=== PATIENT | male | born 1970 | race Caucasian/White ===

== ENCOUNTER 2019-01-27 11:38 | Day surgery (SDC) | payer BC ==
[2019-01-24 11:56] VITALS: BMI 31.3
[~2019-01-27 11:38] MED LIST: LACTATED RINGERS 1,000 ML IV SCH
[2019-01-27] MEDS ORDERED: LIDOCAINE 1% 20 ML VIAL (10MG/ML) FOR IV START INTRADERMA ONE (13:00)
[2019-01-27 13:19] VITALS: TEMP 98.4
[2019-01-27] MEDS ORDERED: PROPOFOL 10 MG/ML 20 ML VIAL IV ONE (13:28)
[2019-01-27 13:57] VITALS: RESP 14
[2019-01-27 14:12] VITALS: BP 126/78; PULSE 75
--- NOTE | 2019-01-27 16:14 | P.PCN ---
Date of Procedure: 01/27/19 Procedure(s) Performed: BRIEF HISTORY: Patient is a 48-year-old pleasant white male, scheduled for an elective colonoscopy as a part of evaluation of intermittent blood in the stools for the last 3 years duration PROCEDURE PERFORMED: Colonoscopy with snare polypectomy. PREOPERATIVE DIAGNOSIS: intermittent rectal bleeding. IV sedation per Anesthesia. PROCEDURE: After informed consent was obtained, the patient, was brought into the endoscopy unit. IV sedation was administered by Anesthesia under continuous monitoring. Digital rectal examination was normal. Initially the Olympus CF-160 flexible video colonoscope was then inserted in the rectum, gradually advanced into the cecum without any difficulty. Careful examination was performed as the scope was gradually being withdrawn. Ileocecal valve and the appendiceal orifice were visualized and appeared normal. Prep was excellent. Mucosa of the cecum, ascending colon, transverse colon, descending colon, sigmoid colon, and rectum appeared normal. In the sigmoid colon at 30 cm from the anal verge there was a 2.5 cm pedunculated polyp that was removed by snare polypectomy. Retroflexion was performed in the rectum and no lesions were seen. The patient tolerated the procedure well. IMPRESSION: 2.5 cm pedunculated sigmoid colon polyp status post polypectomy RECOMMENDATIONS: Findings of this examination were discussed with the patient as well as a family. He was advised to follow with the biopsy doesn't have a repeat colonoscopy in 3 years.
== END 2019-01-27 14:33 | disposition home or self-care (01) ==
LOC: ORWHC2ENDO 11:38
PROVIDERS: ATTEND Internal Medicine Gastroenterology
DX: D12.5 Benign neoplasm of sigmoid colon (principal); I10 Essential (primary) hypertension; E78.5 Hyperlipidemia, unspecified; K21.9 Gastro-esophageal reflux disease without esophagitis; Z79.899 Other long term (current) drug therapy; Z98.890 Other specified postprocedural states
CPT/HCPCS: 88305; 45385; J2704

== ENCOUNTER → 2020-03-12 | Outpatient (CLI) | payer BC ==
--- NOTE | 2020-03-13 21:10 | MR ---
EXAMINATION TYPE: MR cspine/tspine wo con DATE OF EXAM: 03/12/2020 COMPARISON: Cervical spine x-ray 4 days ago. MRI cervical spine December 01, 2013 HISTORY: Cervicalgia, pain in T-sp TECHNIQUE: Multiplanar, multisequence imaging of cervical and thoracic spine are performed without co ntrast FINDINGS: MRI CERVICAL SPINE: FINDINGS: There is levoconvex scoliotic curvature centered in the upper thoracic spine redemonstrated . Sagittal images of the cervical spine show the craniocervical junction to remain within normal limi ts. The cervical and upper thoracic spinal cord remains normal in caliber and signal. Stable mild di sc space narrowing C6-C7 level otherwise. Vertebral body and intravertebral disk heights are normal. The bone marrow signal intensity remains within normal limits. Axial images show the C2-C3 and C3-C4 levels to remain within normal limits. Axial images at C4-C5 levels with tiny central disc protrusion on current study mildly effacing anter ior thecal sac axial image 30. Axial images at C5-C6 level show focal central disc protrusion mildly facing anterior thecal sac, the re is mild left-sided neural foraminal narrowing noted. Axial images at C6-C7 level show largest left paracentral broad-based disc protrusion effacing gracie lateral thecal sac and causing slight flattening of the left aspect of the ventral surface spinal cor d on image 15, this is more prominent from prior study causing increasing now moderate to severe left -sided neural foraminal narrowing. Right-sided neural foramina is patent. Axial images at C7-T1 level remain within normal limits. IMPRESSION: Some new mild degenerative changes in the mid cervical spine. Worsening degenerative simms ges at the most severe disc herniation C6-C7 level as detailed above. T-SPINE: Coronal images show prominent levoconvex scoliosis centered at T3-T4 disc space level. Spinal cord s hows normal caliber and signal as it courses the thoracic spine. Vertebral body heights and disc spa ce height are satisfactory. Tiny posterior disc herniation minimally effaces the anterior thecal sac T11-T12 level sagittal image 10. Bone marrow signal intensity is preserved. Review of the axial images shows additional left paracentral disc protrusions minimally efface the a nterior thecal sac at T3-T4 level axial image 14. No additional significant disc herniation seen. Visualized thorax and upper abdomen are grossly unremarkable. IMPRESSION: No significant abnormality is seen to account for patient's symptoms.
== END | disposition home or self-care (01) ==
LOC: RADMRIMAIN 13:19
PROVIDERS: ATTEND Orthopaedic Surgery
DX: M50.223 Other cervical disc displacement at C6-C7 level (principal); M47.812 Spondylosis without myelopathy or radiculopathy, cervical region; M54.6 Pain in thoracic spine
CPT/HCPCS: 72141; 72146

== ENCOUNTER 2020-04-11 08:57 | Day surgery (SDC) | payer BC ==
[2020-04-09 12:14] VITALS: BMI 31.3
[2020-04-11] MEDS ORDERED: LACTATED RINGERS 1,000 ML IV SCH (09:05)
[2020-04-11 09:13] VITALS: RESP 16; TEMP 97.9
[2020-04-11] MEDS ORDERED: DEXAMETHASONE SOD PHOSPHATE 10 MG/ML 1 ML VIAL ONE (09:25)
[2020-04-11] MEDS ORDERED: methylPREDNISolone ACETATE 40 MG/ML 1 ML VIAL ONE (09:25)
[2020-04-11] MEDS ORDERED: IOPAMIDOL M200 10 ML VIAL ONE (09:25)
--- NOTE | 2020-04-11 09:26 | P.PCN ---
Date of Procedure: 04/11/20 Description of Procedure: PROCEDURE 1. Cervical epidural steroid injection under fluoroscopic guidance, C6-C7 2. Cervical epidurogram. PREOPERATIVE DIAGNOSIS: Cervical radiculopathy POSTOPERATIVE DIAGNOSIS: Cervical radiculopathy Imaging: Fluoroscopy was used, images where saved to the medical record ANESTHESIA: Local anesthesia with 1% lidocaine PROCEDURE DESCRIPTION / TECHNIQUE: The patient was seen and identified in the preoperative area. Risks, benefits, and alternatives were discused with the patient and the patient has consented to the procedure. Risks of the procedure include potential for bleeding, infection, nerve damage, and incomplete pain relief were discussed with the patient. All questions were answered for the patient Patient was taken to the OR and time out was completed. The patient was placed in the prone position on the procedure table. A pillow was placed under the patients chest to increase the cervical interlaminar space. The cervical area was prepped and draped in the usual sterile fashion. Vital signs were closely monitored during the procedure. Using anterior-posterior fluoroscopy, the C6-C7 interlaminar space was identified and the skin over this site was marked and then infiltrated with 1% lidocaine subcutaneously. Subsequently, a 20-gauge 3-1/2-inch Tuohy epidural needle was inserted and advanced toward the epidural space by means of the hfgs-[id number] technique and guided by AP and lateral fluoroscopy. The correct needle position in the epidural space was verified with the injection of 1 mL of the water soluble contrast dye Isovue-180 and observing an excellent epidurogram with the epidural spread of the dye, after negative aspiration for blood and CSF and in the absence of paresthesias. Again after negative asp iration, a mixture containing 10 mg Dexamethasone and 2 ml of preservative-free normal saline injected and a washout of epidurogram was seen. Needle was withdrawn intact, skin was cleansed, and bandages were applied. Complications: none. Disposition: patient was placed in supine position and transferred to the recovery room area in stable condition and there was no evidence of upper or lower extremity motor or sensory deficit after the procedure patient was discharged from recovery room after discharge criteria met and home discharge instructions was given by the staff and patient will follow with the pain as directed.
[2020-04-11 09:41] VITALS: BP 137/77; PULSE 67
--- NOTE | 2020-04-11 10:56 | FL ---
Fluoroscopy HISTORY: Pain 5 seconds fluoroscopy time supplied to the referring clinician. 1 intraoperative C-arm images docume nt the procedure. See dictated report from anesthesia.
== END 2020-04-11 09:53 | disposition home or self-care (01) ==
LOC: ORPAIN 08:57
PROVIDERS: ATTEND Hospitalist
DX: M54.12 Radiculopathy, cervical region (principal); M48.02 Spinal stenosis, cervical region
CPT/HCPCS: 62321; J1100; Q9966; 64483

== ENCOUNTER → 2020-06-06 | Outpatient (CLI) | payer BC | END | disposition home or self-care (01) | LOC: LABPAT 08:19 | PROVIDERS: ATTEND Orthopaedic Surgery | DX: Z01.812 Encounter for preprocedural laboratory examination (principal); M43.12 Spondylolisthesis, cervical region | CPT/HCPCS: 87070 ==

== ENCOUNTER → 2020-06-10 | Outpatient (CLI) | payer BC ==
[~2020-06-10] MED LIST changes: +ACETAMINOPHEN TAB 500 MG TAB PO PRN; +GABAPENTIN 300 MG CAP PO PRN; -LACTATED RINGERS 1,000 ML IV SCH; +ONDANSETRON 4 MG/2 ML VIAL IVP PRN; +TRANEXAMIC ACID 1,000 MG in SODIUM CHLORIDE 0.9% 100 ML IVPB PRN
[2020-06-10 14:36] LABS: African American GFR (CKD) 122.4 (60.0-200.0); Albumin 4.7 g/dL (3.80-4.90); Albumin/Globulin Ratio 2.35 (1.60-3.17); Anion Gap 3.3 mmol/L (4.00-12.00); BUN/Creat Ratio 13.75 Ratio (12.00-20.00); Calcium 9.2 mg/dL (8.7-10.3); Carbon Dioxide 32.7 mmol/L (21.6-31.8); Non-African American GFR(CKD) 105.6 (60.0-200.0); Potassium 3.5 mmol/L (3.5-5.5); Total Bilirubin 0.7 mg/dL (0.3-1.2); Total Protein 6.7 g/dL (6.2-8.2)
== END | disposition home or self-care (01) ==
LOC: LABWHC1 08:30
PROVIDERS: ATTEND Orthopaedic Surgery
DX: E87.6 Hypokalemia (principal)
CPT/HCPCS: 36415; 80053

== ENCOUNTER 2020-06-11 10:17 | Day surgery (SDC) | payer BC ==
[2020-06-05 10:38] VITALS: BMI 31.3
[2020-06-11] MEDS ORDERED: ONDANSETRON 4 MG/2 ML VIAL IVP ONE (10:27)
[2020-06-11] MEDS ORDERED: MIDAZOLAM 2 MG/2 ML VIAL IV PRN (10:27)
[2020-06-11] MEDS ORDERED: HYDROmorphone 0.5 MG/0.5 ML SYRINGE IVP PRN (10:27)
[2020-06-11] MEDS ORDERED: LACTATED RINGERS 1,000 ML IV SCH (10:27)
[2020-06-11] MEDS ORDERED: DEXAMETHASONE SOD PHOSPHATE 4 MG/ML 1 ML VIAL IV ONE (10:27)
[2020-06-11] MEDS ORDERED: LIDOCAINE 1% (10MG/ML) FOR IV START INTRADERMA PRN (10:27)
[2020-06-11] MEDS ORDERED: PROPOFOL 10 MG/ML 20 ML VIAL IV ONE (12:45)
[2020-06-11] MEDS ORDERED: PHENYLEPHRINE 10 MG/ML VIAL ONE (12:45)
[2020-06-11] MEDS ORDERED: KETAMINE 10 MG/ML 20 ML VIAL ONE (12:45)
[2020-06-11] MEDS ORDERED: LIDOCAINE 1% INJ 10MG/ML (20 ML MDV) ONE (12:45)
[2020-06-11] MEDS ORDERED: fentaNYL (PF) 50 MCG/ML 2 ML AMP ONE (12:45)
[2020-06-11] MEDS ORDERED: MIDAZOLAM 2 MG/2 ML VIAL ONE (12:45)
[2020-06-11] MEDS ORDERED: SUCCINYLCHOLINE CHLORIDE 100 MG/5 ML SYR IV ONE (12:45)
[2020-06-11] MEDS ORDERED: DEXAMETHASONE SOD PHOSPHATE 10 MG/ML 1 ML VIAL ONE (12:45)
[2020-06-11] MEDS ORDERED: SODIUM CHLORIDE 0.9% 100 ML BAG ONE (12:45)
[2020-06-11] MEDS ORDERED: TRANEXAMIC ACID 1,000 MG/10 ML VIAL ONE (12:45)
--- NOTE | 2020-06-11 12:45 | P.HPOR ---
History of Present Illness H&P Date: 06/11/20 Chief Complaint: Neck pain with UE weakness and radiculopathy CC: been having more neck pain in the left arm asserting HISTORY: Physical Therapy: Yes in 2013 Did it help? No Injections: No Activity Modifications: yes Brace: No This 50 year old male presents with years of neck pain. He notes a significant increase of pain over the past 3 months. Patient notes left sided pain that radiates down his arm. He also notes numbness into his hand. Patient has symptoms at night time. He notes limited range of motion. Patient has increase of pain while working. He states that the pain and discomfort limits his ability to do his job. Patient currently sees a chiropractor with some relief. He takes Ibuprofen and Tylenol three times daily. he denies any bowel or bladder incontinence. He denies any perineal numbness or tingling. He denies being unsteady on his feet although he does state that he has some difficulty with fine motor skills Review of Systems 14 points review of systems completed and as stated in HPI, all other systems reviewed are negative. Past Medical History Past Medical History: GERD/Reflux, GI Bleed, Hyperlipidemia, Hypertension, Musculoskeletal Disorder Additional Past Medical History / Comment(s): Colon polyp hx. c/o neck pain, NT Lt arm History of Any Multi-Drug Resistant Organisms: None Reported Past Surgical History: Hernia Repair Additional Past Surgical History / Comment(s): Colonoscopy, Pain proc 04/11/20 Past Anesthesia/Blood Transfusion Reactions: Motion Sickness Smoking Status: Never smoker - Past Family History Mother Family Medical History: No Reported History Medications and Allergies Home Medications Medication Instructions Recorded Confirmed Type Famotidine [Pepcid] 20 mg PO DAILY 01/24/19 06/06/20 History Ibuprofen [Motrin Ib] 400 - 800 mg PO Q8H PRN 06/05/20 06/06/20 History Atorvastatin [Lipitor] 40 mg PO HS 06/06/20 06/06/20 History Losartan Potassium [Cozaar] 100 mg PO DAILY 06/06/20 06/06/20 History Potassium Chloride [Klor-Con 20] 20 meq PO BID 06/06/20 06/06/20 History amLODIPine BESYLATE 10 mg PO DAILY 06/06/20 06/06/20 History hydroCHLOROthiazide [Hydrodiuril] 25 mg PO DAILY 06/06/20 06/06/20 History Allergies Allergy/AdvReac Type Severity Reaction Status Date / Time No Known Allergies Allergy Verified 06/05/20 10:15 Physical Examination Osteopathic Statement: *. No significant issues noted on an osteopathic structural exam other than those noted in the History and Physical/Consult. General: Awake, alert, appropriate for age, in no acute distress. HEENT: No unusual neck masses around region of lateral neck triangle, thyroid, supraclavicular groove Extremities: Skin warm and dry without acute lesions, coloration, temperature, skin intact, no tenderness or erythema Integument: Hairy patches: Absent Dorsal skin dimples: Absent Cafe au lait spots: Absent Surgical incisions: none Palpation: Please see Pain drawing on Intake sheet for further detail. Midline spinal tenderness: yes cervical E6 Paralumbar tenderness: No E6 Parathoracic tenderness: yes left > right E6 Buttocks tenderness: No E6 Special findings: none POSTURAL and MUSCULO-SKELETAL EVALUATION: Coronal Balance: Neutral Recumbent testing: Patient is able to lay flat on back Sagittal Balance: Neutral Shoulder Profile:level Pelvic Girdle: level Neck ROM: some pain and discomfort Lumbar ROM: Unrestricted Shoulder ROM: Symmetric in abduction, ER/IR Hip ROM: Symmetric in abduction, adduction, ER/IR Knee ROM: Symmetric and intact in Flexion / extension Hands: normal Feet: normal VASCULAR STATUS : LEFT RIGHT Wrist Pulses intact intact Pedal Pulses (Dors. pedis & post.tibialis) intact intact Color normal normal Edema Absent Absent NEUROLOGIC EXAMINATION: Mental Status: Awake and alert, fully oriented, with normal attention, concentration and memory, and fluent, appropriate speech. Cranial Nerves: I: Olfactory not tested. II: Visual acuity normal, no visual field deficit noted with confrontation. III,IV: Normal pupillary reflexes & intact extraocular movements without nystagmus. V,: Intact symmetrical facial sensation. VII: Intact symmetrical facial motor movement VIII: Hearing intact. IX,X: swallow, & normal voice. XI: Sternocleidomastoid, trapezius function intact. XII: Tongue midline with normal movements. L'hermitte's Sign: Negative / absent Spurling'Sign: Absent bilaterally. Cubital percussion test: Absent bilaterally. Ludmila-Tinel sign - Carpal region: Absent bilaterally. Straight Leg Raising: Absent bilaterally. Crossed straight leg raise: negative O8 MOTOR EXAM (0-5/5, N/T) STRENGTH RIGHT LEFT Shoulder Abd (not part of the MARIA L score) 5 5 Elbow Flexors 5 5 Elbow Extensor 5 5 Wrist Dorsiflexors 5 4 Finger Abductor 5 5 [employer] 5 4 Hip Flexor (Not part of MARIA L Motor score) 5 5 Knee Flexor 5 5 Knee Extensor 5 5 Ankle dorsiflexor 5 5 Ankle plantarflexion 5 5 Extensor hallucis 5 5 REFLEXES(0-4/2, NT) RIGHT LEFT Upper Extremities 2 2 Lower Extremities 2 2 Pathological Reflexes RIGHT LEFT Cox's Absent Absent Clonus Absent Absent # Indicates mechanical impairment Muscle appearance: symmetrical Rectal Tone: not tested. Sensory system (0-4, N/T) Test type RU GRADY RL LL Joint-Position 2 2 2 2 Vibration 2 2 2 2 Pain & LT sense 2 2 2 2 Dermatomal Deficit: none none none none Gait and Functional Evaluation: Ambulatory aids: Independent Romberg's test: Intact bilaterally Toe heel walk / heel-toe walk intact while maintaining satisfactory balance? yes Squatting/straightening w/o assistance to a min of 60 degree knee flexion? yes Single leg stance: intact Trendelenburg sign negative bilaterally Hand and finger dexterity intact bilaterally? yes Disdiadochokinesis examination negative bilaterally? intact Results AP lateral flexion extension films of the cervical spine are obtained and reviewed in the office today. these demonstrate a grade 1 spondylolisthesis of cervical 6 and 7. Overall alignment is fairly well maintained. There is some reversal of the normal cervical lordosis. There are no acute fractures or dislocations. Occipital cervical and C1 2 joints appear stable through flexion and extension. MRIs reviewed from 03/12/2020: This demonstrates severe spondylosis with large disc herniation at C6-C7. There is severe central stenosis in this area as well as foraminal stenosis. The foraminal stenosis is worse on the left with which correlates with the patient's symptoms. There is no evidence of infection epidural mass fracture or dislocation. T2-weighted images failed to demonstrate any myelomalacia at this time. Overall alignment is well maintained. MRI of the T-spine was reviewed as well which shows a cervical thoracic scoliosis however there is no fractures dislocations or stenosis noted of the thoracic spine on MRI. Assessment and Plan Assessment: 1. C6-7 spondylolisthesis with severe left foraminal central stenosis due to large chronic disc herniation 2. UE radiculopathy and weakness Plan: Stephen Brand is a 50 yo male presenting for evaluation of gradual with worssening onset of bilateral upper extremity weakness, numbness, and a loss of hand dexterity on the Left. It was my pleasure to have seen and examined Stephen Brand. In our visit today we have had a chance to go over subjective complaints, physic al examination findings and treatments including the natural course history without intervention and various interventional options. His/her imaging demonstrates Severe central as well as foraminal stenosis of the C6-7 with Grade I spondylolisthesis. 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 I explained to the patient that as her condition progresses it will cause further neurological deficits and eventual paralysis. Based on the patients imaging, physical exam, and the rapid progression and disabling nature of his symptoms, at this time I recommend surgery in the form or a: C6-7 ACDF. I discussed the risk and benefits of this procedure at length with Stephen Brand. The patient agreed to considered pursuing the procedure abovementioned. Prior to surgery, she should follow up with her PCP (Cardio, ID, IM etc) for clearance . Questions were invited and answered, and the patient wishes to proceed as outlined below. Currently, I am recommendin. C6-7 anterior cervical discectomy and fusion 2.Follow up with PCP for surgical clearance 3.Review of surgical risks and benefits as well as an educational packet on the proposed surgical procedure. 4.I discussed at length with the patient fusion versus disc replacement. While this replacement may maintain motion in this area it is a lower segment with his cervical spine and preferably we would like to create stability for him due to the fact that he has listhesis at this level and such a severe disc herniation. I do feel that fusion would be the best outcome for him. He understands that there is a risk of proximal or distal segment disease. He understands that there is a risk of reoperation. And he is willing to assume these risks of surgery. Risks: All surgical procedures come with inherent risks, including those related to positioning, anesthesia, intraoperative findings, and postoperative com plications. It is important to understand that surgery does not come with any guarantee of a successful outcome as complications and adverse events are always possible. The patient was given a handout in office today discussing the surgical procedure and risks associated with the intervention, both of which were discussed with the patient. These risks include but are not limited to the following: ? Experiencing same, different or even worse symptoms in back, neck, arms, or legs compared to before surgery. ? Requiring further surgery or other forms of treatment presently or at some time in the future at same or other levels of the intended spine surgery. ? On an extreme but fortunately relatively rare basis severe complication such as blindness, stroke, heart attack, temporary and/or permanent nerve injury, paralysis, coma, or may occur, sometimes without known explanation. ? Surgical complications may include but are not limited to risk of infection, fluid accumulation in the surgical dissection site, including a seroma or hematoma, that requires additional surgery, wound drainage, bleeding, new numbness or weakness, vision changes/loss, spinal fluid leakage, non-healing and/or infected incision, headaches, difficulty or inability to swallow, hoarseness, hemopneumothorax, pneumothorax, impotence, retrograde ejaculation, vaginal dryness; injury to nerves, spinal cord, blood vessels, lymphatics or other vital organs (i.e., bowel injury, injury to the great vessels); heterotopic bone formation; complications related to the hardware such as screws, rods, cages including misplaced hardware, device failure, instrumentation at the wrong spine level, hardware fracture/breakage, or hardware loosening; vertebral failure of the spinal column above or below the newly placed hardware; retained surgical instrumentations or devices and the need for further surgery. ? Medical risks of the planned spine surgery include but are not limited to generalized Infections to the whole body or local areas outside of the surgical site (sepsis), heart attack, bleeding, anaphylaxis, meningitis, seizure, epilepsy, hearing loss, burn beauchamp, laceration of the head or other areas of the body, bruising, hypersensitivity of the skin, bladder over distension; allergic reaction; shoulder injury related to positioning; fat, blood and air clots to other areas of the body like heart, lungs, brain; failure of internal organs such as lungs, kidneys, liver and excessive bleeding. If blood transfusions are necessary, note that transfusions may cause intolerance reactions such as anaphylaxis or other complex reactions. Despite best efforts, the results of spine surgery might not heal in terms of bone, soft tissues such as skin, fascia, ligaments, and joints. Additionally, in order to achieve best possible results, spine surgery may be carried out beyond the initially planned levels and involve decompression, fusion including insertion of hardware at levels other than the original intended area of surgical interest change some portions of the procedure in order to ensure the best possible outcomes. With spine surgery and spinal fusion, there are different off label uses of instrumentation (devices, implants and hardware) as well as biological substances (bone morphogenic proteins, demineralized bone matrix) as well as using extra bone from allograft sources (i.e. cadaver bone) or autograft (iliac crest bone, ribs, or the spine itself). The patient has been given information about these practices and their inherent risks and benefits. [facility] is an educational center that serves as a training facility for neurosurgical and orthopedic spine residents and fellows. Residents are p hysicians who are completing their surgical intensive training following medical school. They assist in the operating room with direct supervision of the attending surgeons. [place] are surgeons who have completed their training and eligible for board certification. They have opted for an elective year of more specialized training in their field. They assist in the operating room under the supervision of the attending surgeons. Physician assistants are medically trained surgical providers who function in the outpatient, inpatient, and operating room setting under the direct supervision of the attending surgeon. [facility] has multiple operating rooms with single and overlapping rooms running daily. They currently function under the required guidelines as produced by the [facility] Finance Committee with regards to the overlapping rooms and will continue to comply with changes to this policy as they occur. The requirements include and are complied with as follows: (1) the critical portions of the overlapping rooms will not occur at the same time, (2) the attending physician will be physically present during the critical portions of the procedure and immediately available during the entire case, and (3) a back-up attending is designated should the primary attending not be immediately available. The patient has had a chance to review all the listed information, has been given print outs detailing this information, and has had all his/her questions answered to their satisfaction. It was my pleasure to have seen and examined Stephen Brand. In our visit today we have had a chance to go over my understanding of our patient's current condition, the natural course history without intervention and various interventional options. Questions were invited and answered, and the patient wishes to proceed as outlined above. I have seen and examined the patient for 25 minutes and we have spent more than 50% of the time in repeat and detailed counseling about the patient's condition, its natural course history with out and as much as can be predicted with surgery and re-review of various surgical treatment options. In conclusion, Stephen Brand requested we proceed with the above suggested surgery and are willing to accept risks and limitations of the suggested surgery as nature of the disease process and our best attempts at treatment for the condition. Thank you again for allowing us to be part of your patient's care. Please don't hesitate to contact me if you have any further questions. Signed and authenticated by: Vinnie Medina [facility] [address] [place] [address] Time with Patient: Greater than 30
[2020-06-11] MEDS ORDERED: SODIUM CHLORIDE 0.9% 100 ML with ceFAZolin 2,000 MG IV ONE ×2 (13:20)
[2020-06-11] MEDS ORDERED: THROMBIN (BOVINE) 5,000 UNIT VIAL MISCELLANE ONE (13:29)
[2020-06-11] MEDS ORDERED: GELATIN SPONGE,ABSORB (LARGE) 1 EACH SPONGE MISCELLANE ONE (13:29)
[2020-06-11] MEDS ORDERED: BUPIVACAINE (PF) 0.25% 30 ML VIAL SQ ONE ×2 (13:29→15:24)
[2020-06-11] MEDS ORDERED: LACTATED RINGERS 1,000 ML IV ONE (14:02)
[2020-06-11] MEDS ORDERED: DEXAMETHASONE SOD PHOSPHATE 4 MG/ML 1 ML VIAL IV PRN (15:23)
[2020-06-11] MEDS ORDERED: ONDANSETRON 4 MG/2 ML VIAL IVP PRN (15:23)
[2020-06-11] MEDS ORDERED: SENNOSIDES 8.6 MG TAB PO PRN (15:23)
[2020-06-11] MEDS ORDERED: HYDROcodone/APAP 5-325MG 1 EACH TAB PO PRN (15:24)
--- NOTE | 2020-06-11 15:41 | FL ---
EXAMINATION TYPE: FL guidance operating room DATE OF EXAM: 06/11/2020 CLINICAL HISTORY: Neck pain. TECHNIQUE: Fluoroscopy. COMPARISON: Outside cervical spine x-ray March 08, 2020. MRI cervical spine March 12, 2020. FINDINGS: Fluoroscopic guidance was provided during neck surgical procedure performed by Dr. Goodman sidhu. A total of 40 seconds of fluoroscopic time was utilized during the procedure and 6 spot images was acquired. Images show localization at the C6 level with subsequent placement up to level anterior fusion plate C6-C7 level. IMPRESSION: As Above.
--- NOTE | 2020-06-11 16:43 | XR ---
Fluoroscopy INDICATION: Pain FINDINGS: Fluoroscopy time: 40 seconds. IMPRESSIONS: 1. Documentation of fluoroscopy.
[2020-06-11] MEDS: GABAPENTIN 300 MG CAP PO SCH ×2 (17:18→20:39)
[2020-06-11] MEDS: HYDROmorphone 1 MG/ML 1 ML SYRINGE IVP PRN ×2 (17:36→20:38)
[2020-06-11] MEDS: 0.9% NACL WITH KCL 20 MEQ/L 1,000 ML IV SCH (17:57)
--- NOTE | 2020-06-11 20:26 | CONS ---
CONSULTATION REASON FOR CONSULTATION: Advice regarding hypertension and multiple other medical issues, requested by Dr. Calzada. HISTORY OF PRESENT ILLNESS: This 50-year-old gentleman with a past medical history of GERD, GI bleed, hypertension, hyperlipidemia, being followed by Dr. Roque Lindo in the outpatient setting, underwent a C6-7 anterior cervical discectomy and fusion by Dr. Calzada. The patient tolerated the procedure well. Patient is slightly drowsy at this time. RIP drain is in place. There is no history of any fever, rigor or chills. No history of headache, loss of consciousness, seizures at this time. PAST MEDICAL HISTORY: GERD, GI bleed, hypertension, hyperlipidemia, colonic polyps. HOME MEDICATIONS: HydroDIURIL 25 mg p.o. daily, amlodipine 10 mg daily, Klor-Con, Cozaar, Motrin, Pepcid, Lipitor. Doses are reviewed. ALLERGIES: VERAPAMIL. FAMILY HISTORY: No history of heart disease or strokes in the family. SOCIAL HISTORY: Occasional alcohol intake. No history of smoking. REVIEW OF SYSTEMS: ENT: No diminished hearing. No diminished vision. CARDIOVASCULAR SYSTEM: No angina, palpitations. RESPIRATORY SYSTEM: No cough, hemoptysis. GI: No nausea, vomiting, diarrhea. : No dysuria or retention. NERVOUS SYSTEM: No numbness, weakness. ALLERGY/IMMUNOLOGY: No asthma, hayfever. MUSCULOSKELETAL: As mentioned earlier. HEMATOLOGY/ONCOLOGY: No history of anemia. ENDOCRINE: No history of diabetes, hypothyroidism. CONSTITUTIONAL: As mentioned earlier. DERMATOLOGY: Negative. RHEUMATOLOGY: Negative. PSYCHIATRY: As mentioned earlier. PHYSICAL EXAMINATION: Patient alert and oriented x3. Pulse 80, blood pressure is 119/71, respiration 16, temperature 97 degrees, pulse ox 98% on 2 L. HEENT: Conjunctivae normal. NECK: Status post surgery. CARDIOVASCULAR SYSTEM: S1, S2 muffled. RESPIRATORY SYSTEM: Breath sounds diminished at the bases. No rhonchi. No crackles. ABDOMEN: Soft, non-tender. No mass palpable. LEGS: No edema. No swelling. NERVOUS SYSTEM: Higher functions as mentioned earlier. No focal motor deficit. LYMPHATICS: No lymph node palpable in neck, axillae or groin. SKIN: No ulcer, rash, bleeding. JOINTS: No active deforming arthropathy. LABS: Preoperative labs showed CBC within normal limits. Coags are normal. Chemistry showed CO2 of 32, otherwise normal. ASSESSMENT: 1. Status post C6-7 anterior cervical discectomy and fusion for severe cervical degenerative joint disease. 2. History of gastroesophageal reflux disease. 3. History of gastrointestinal bleed. 4. Hypertension. 5. Hyperlipidemia. 6. History of colonic polyps. 7. History of hernia repair. 8. History of motion sickness. 9. FULL CODE. RECOMMENDATIONS AND DISCUSSION: In this 50-year-old gentleman who presented with multiple complex medical issues, we will monitor the patient closely, continue the current medications, continue symptomatic treatment. Otherwise, resume the home medications. DVT prophylaxis. Incentive spirometry. Prognosis guarded because of multiple complex medical issues. Further recommendations to follow. A copy of this dictation is being forwarded to Dr. Lindo, who is the primary physician. Thank you, Dr. Calzada, for letting us participate in the care of this patient. MMODL / DERICN: [id number] /
[2020-06-11] MEDS: POTASSIUM CHLORIDE ER 20 MEQ TAB.ER PO SCH (20:39)
[2020-06-11] MEDS: DOCUSATE 100 MG CAP PO SCH (20:39)
[2020-06-11] MEDS ORDERED: ATORVASTATIN 40 MG TAB PO SCH (21:00)
[2020-06-11 21:08] VITALS: RESP 16
[2020-06-12] MEDS: 0.9% NACL WITH KCL 20 MEQ/L 1,000 ML IV SCH (05:23)
[2020-06-12 05:41] LABS: Basophils % (A) 0 %; Eosinophils % (A) 0 %; HCT 40.9 % (39.0-53.0); HGB 13.8 gm/dL (13.0-17.5); Lymphocytes # (A) 0.7 k/uL (1.0-4.8); Lymphocytes % (A) 5 %; MCH 30.3 pg (25.0-35.0); MCHC 33.8 g/dL (31.0-37.0); MCV 89.9 fL (80.0-100.0); Mean Platelet Volume 6.6; Monocytes # (A) 0.2 k/uL (0-1.0); Monocytes % (A) 2 %; Neutrophils # (A) 13.1 k/uL (1.3-7.7); Neutrophils % (A) 93 %; Platelet Count 338 k/uL (150-450); RBC 4.55 m/uL (4.30-5.90); RDW 12.7 % (11.5-15.5); WBC 14.1 k/uL (3.8-10.6)
[2020-06-12] MEDS: GABAPENTIN 300 MG CAP PO SCH (08:15)
[2020-06-12] MEDS: DOCUSATE 100 MG CAP PO SCH (08:17)
[2020-06-12] MEDS: POTASSIUM CHLORIDE ER 20 MEQ TAB.ER PO SCH (08:17)
[2020-06-12 08:37] VITALS: BP 114/71; PULSE 92; TEMP 98.8
[2020-06-12] MEDS ORDERED: LOSARTAN 50 MG TAB PO SCH (09:00)
[2020-06-12] MEDS ORDERED: hydroCHLOROthiazide 25 MG TAB PO SCH (09:00)
[2020-06-12] MEDS ORDERED: amLODIPine 10 MG TAB PO SCH (09:00)
[2020-06-12] MEDS ORDERED: FAMOTIDINE 20 MG TAB PO SCH (09:00)
--- NOTE | 2020-06-12 09:09 | P.PN ---
Subjective Progress Note Date: 06/12/20 Principal diagnosis: Status post C6- 7 anterior discectomy with fusion Patient was evaluated today at bedside, Dr. Calzada was also available to examine the patient. Patient is doing very well at this time, he was sitting up in bed eating breakfast. His diet was consisting of clear liquids and soft foods, we discussed advancing this as the day goes on. Patient's pain is well- controlled at this time, he has very minimal neck pain. Symptoms of the left upper extremity have significantly improved, there is no shooting pain radiating down the arm. He has minimal numbness in notes in the index and middle finger on the left hand. He denies any numbness, tingling, loss of sensation, loss of strength or motion in the right upper extremity or bilateral lower extremities. Currently has no headaches, lightheadedness, chest pain or shortness of breath. Objective - Vital Signs Vital signs: Vital Signs Temp 98.8 F 06/12/20 08:00 Pulse 92 06/12/20 08:00 Resp 16 06/12/20 08:00 BP 114/71 06/12/20 08:00 Pulse Ox 94 L 06/12/20 08:00 Intake & Output 06/11/20 06/12/20 06/12/20 18:59 06:59 18:59 Intake Total 1400 Output Total 50 40 Balance 1350 -40 Weight 95 kg Intake: IV 1400 Output: Drainage 40 Anterior Neck 40 Estimated Blood Loss 50 Other: Voiding Method Toilet Urinal # Voids 2 1 - Exam Gen: AOx3, NAD VSS stable at this time Integument: Postoperative bandages removed, incision is clean, dry and intact. There is very minimal drainage noted in the RIP drain, this was also removed today at bedside, Steri-Strip was applied. Palpation: No significant tenderness with palpation appreciated over the anterior and posterior cervical spine region ROM: Patient is able to extend, flex and rotate the head with no significant discomfort Sensory Exam: Senory exam to light touch is intact C5-T1, minimal numbness in the second and third digit on the left hand Senosry exam to light touch is intact L2-S1 Motor: 5 out of 5 strength is noted bilaterally with shoulder abduction, elbow extension, elbow flexion, wrist extension, wrist flexion, intrinsics 5 out of 5 strength is noted bilaterally with hip flexion, knee extension, knee flexion, plantar flexion, dorsiflexion, EHL, FHL Reflexes: 2/4 in all UE and LE Negative Stacey's, Babinski test No clonus appreciated bilaterally - Labs CBC & Chem 7: 06/12/20 05:11 Labs: Abnormal Lab Results - Last 24 Hours (Table) 06/12/20 Range/Units 05:11 WBC 14.1 H (3.8-10.6) k/uL Neutrophils # 13.1 H (1.3-7.7) k/uL Lymphocytes # 0.7 L (1.0-4.8) k/uL Assessment and Plan Assessment: Postoperative day #1 status post C6-C7 anterior cervical discectomy with fusion Plan: Patient is doing very well at this time. Pescription was placed for a soft c- collar. Instructions were discussed with use of brace and activity level restrictions. Pain control, patient will be discharged home on [place] 5 mg/325 mg, also utilize Flexeril 10 mg as needed GI prophylaxis, Colace was also prescribed Wound care instructions were discussed today at bedside, dressings were all changed at bedside today Plan is for follow-up with Dr. Calzada in the outpatient setting in 2 weeks Time with Patient: Less than 30
--- NOTE | 2020-06-12 09:16 | P.DS ---
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 Calzada Surgical procedures: C6-7 anterior cervical discectomy with fusion Brief history: Patient is a 50-year-old male with a history of C6-7 grade 1 spondylolisthesis with upper extremity radiculopathy and weakness. At this point patient has failed conservative treatment measures and has opted to proceed with a elective C6-7 anterior cervical discectomy with fusion. Hospital course: Details of patient's surgery can be found in operative report. Patient tolerated the procedure well and was subsequently transported to orthopedic floor. Patient's orthopeidc and medical care was provided daily. Patient had daily laboratory tests performed for evaluation of overall blood counts. Patient was noted to have a relatively uneventful postoperative course. Patient reported satisfactory pain control with oral pain medications by postoperative day 0. Patient showed satisfactory progress with physical therapy. Patient moved steadily through the program and had no difficulty meeting the goals by postoperative day 1. Given patient's otherwise satisfactory course and having met physical therapy goals, plan is to discharge patient home on postoperative day 1. Discharge condition/disposition: Patient will be discharged home in stable condition. Discharge medications: Instructions are given on resumption of patient's normal daily medications per primary care recommendation, in addition patient will be prescribed [place] 5 mg/325 mg, Colace 100 mg, Flexeril 10 mg. Discharge instructions: 1. Wound care and infection precautions, keep incision dry and covered while showering, no lotions, creams, moisturizers. No soaking, tubs, pools, hottubs. Do not scrub over the incision. 2. Activity level instructions were discussed, this to include no bending, pushing, pulling, lifting. He is on a 2-3 pound weight restriction with regards to his ADLs. Cervical soft collar will be worn when upright 3. Pain meds per prescription. 4. Pain medication has potential to cause constipation. Increase oral fluid and fiber intake. Contact primary care provider if you have not had a bowel movement within 48 hours after discharge 5. No anti-inflammatory medication until discussed at first post operative visit, this including Motrin, Aleve, Mobic, Diclofenac. 6. Follow up in office at [address] Calzada 7. Follow up with your primary care doctor 7-10 days after discharge. 8. Contact [facility] with any questions, . Procedures: C6-7 anterior cervical discectomy with fusion Patient Condition at Discharge: Good Plan - Discharge Summary Discharge Rx Participant: No New Discharge Prescriptions: New Cyclobenzaprine [Flexeril] 10 mg PO TID PRN #30 tab PRN Reason: Spasms Hydrocodone/Acetaminophen [[place] 5-325] 1 - 2 each PO Q6HR PRN #42 tab PRN Reason: Pain Docusate [Colace] 100 mg PO DAILY #30 capsule No Action Famotidine [Pepcid] 20 mg PO DAILY Ibuprofen [Motrin Ib] 400 - 800 mg PO Q8H PRN PRN Reason: Pain amLODIPine BESYLATE 10 mg PO DAILY Atorvastatin [Lipitor] 40 mg PO HS hydroCHLOROthiazide [Hydrodiuril] 25 mg PO DAILY Losartan Potassium [Cozaar] 100 mg PO DAILY Potassium Chloride [Klor-Con 20] 20 meq PO BID Discharge Medication List Famotidine [Pepcid] 20 mg PO DAILY 01/24/19 [History] Ibuprofen [Motrin Ib] 400 - 800 mg PO Q8H PRN 06/05/20 [History] Atorvastatin [Lipitor] 40 mg PO HS 06/06/20 [History] Losartan Potassium [Cozaar] 100 mg PO DAILY 06/06/20 [History] Potassium Chloride [Klor-Con 20] 20 meq PO BID 06/06/20 [History] amLODIPine BESYLATE 10 mg PO DAILY 06/06/20 [History] hydroCHLOROthiazide [Hydrodiuril] 25 mg PO DAILY 06/06/20 [History] Cyclobenzaprine [Flexeril] 10 mg PO TID PRN #30 tab 06/12/20 [Rx] Docusate [Colace] 100 mg PO DAILY #30 capsule 06/12/20 [Rx] Hydrocodone/Acetaminophen [[place] 5-325] 1 - 2 each PO Q6HR PRN #42 tab 06/12/20 [Rx] Follow up Appointment(s)/Referral(s): Vinnie Calzada DO [Doctor of Osteopathic Medicine] - 2 Weeks Activity/Diet/Wound Care/Special Instructions: Spine Discharge and Recovery Instructions Date of Surgery: 04/30/2020 Diagnosis: C6-7 spondylolisthesis with severe left foraminal central stenosis due to large chronic disc herniation Procedure: C6-7 anterior cervical discectomy and fusion Medications: See medication list All medication refills should be obtained through your primary care doctor or your clinic spine surgeon. Please discuss prescription refills at your follow up appointment. Do not call the hospital for medication refills. Dressing: Leave your dressing in place for a total of 2-3 days post operatively. Then you may remove your dressing and leave open to air. Keep the area clean and if not able to keep area clean, then cover with sterile gauze and tape. Showering: You may shower 3 days after your procedure allowing soap and water to run over incision. Do not scrub. Do not soak. Blot dry. Follow up: Please confirm a follow up appointment with your surgeon 3 weeks post operatively. Please make an appointment to follow up with your PCP in 1-2 weeks after surgery for evaluation 3 phase, 3-week plan POST OP WEEKS 1-3 1. Lifting/carrying/pushing/pulling limited to less than 5 pounds. 2. Do not sit for longer than 15 minutes at one time. Get up and walk around. Prolonged sitting is NOT advised. If you lay down, see if you can tolerate laying down on you front (belly side) 3. Walk for periods of 15 minutes = 1 mile but no longer; do it multiple times times each day. 4. Utilize soft c-collar when up and ambulating. Avoid excess twisting of the neck. POST OP WEEKS 3-6 1. Lifting limited to less than 20 pounds. 2. Do not sit for longer than 30 minutes at a time. Frequently change positions. Use a sit-to stand workstation or take frequent breaks from sitting if you have returned to work. 3. Walk for 30 minutes each day. If possible, do these three or more times a day POST OP WEEKS 6+ At your 6-week appointment we will give you a physical therapy referral to focus on a core stabilization and strengthening program. You should also work on leg & buttock strengthening, hamstring & quadriceps stretching, and continue a low impact aerobic activity program such as swimming, walking, or riding a stationary bicycle. During the initial 6 weeks after your surgery, you are at the highest risk of re-injuring your spine. You should generally avoid BLTs (bending, lifting and twisting combination motions) and follow the above guidelines to reduce the chance of reinjury. You can anticipate post op appointments in our office at approximately 3 weeks and 6 weeks after your surgery. INCISION CARE: If your incision is not draining you do NOT need to cover it with a dressing. Keep your incision clean, dry and intact. In most cases, we apply skin glue, cori or sutures to the incision at the time of surgery. This will be like a crust or have the appearance of a scab and will fall off in time on its own. The stitches or cori need to be removed at 3 weeks post op appointment. You may begin to shower 3 days after surgery (this allows the glue to burris well). However, please avoid scrubbing the incision site or peeling off any of the skin glue. This will ensure optimal healing of your incision. Also, during this time avoid soaking the incision area in water - this includes swimming pools, hot tubs or baths. No ointments, lotions or oils on the incision until your surgeon allows. Leave cori, sutures or glue in place. Neurological dysfunction that comes on suddenly can also be a sign of a stroke. Below some common symptoms of a stroke are listed: B - balance difficulty such as sudden onset walking or leaning to one side - NEW E - eye problem such as sudden double vision or trouble seeing on one side - NEW F - Facial weakness or numbness on one side - NEW A - Arm or leg weakness or numbness on one side - NEW S - Slurred speech or difficulty with word finding - NEW T - Time is BRAIN! Call 911 as soon as you recognize these symptoms Diet: Consume a regular diet rich in vegetables and lean protein such as chicken or fish. You should consume in a ratio of approximately 20% fats|40% carbohydrates|40%protein. Vegetables, sweet potatoes, brown rice or quinoa are examples of good carbohydrates. Chips, white bread, cookies and sweets/sugar are examples of bad carbohydrates. Limit your bad carbs, go wild with good carbs. 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 (1) Get Active. Physical activity can help people lose weight, control high blood pressure and cholesterol, feel emotionally better, and sleep better. (2) Control Cholesterol. Avoid a diet high in saturated fat, trans fat, & cholesterol. Limit whole milk & cream, ice cream, butter, egg yolks, processed meats (like sausage and hot dogs), and fatty meats. Choose healthy foods that are low in saturated fat, trans fat and cholesterol which include: Fruits and vegetables, fiber rich grain products (like whole grain pasta and brown rice), lean meat such as chicken, fish, nuts, seeds, and legumes. (3) Eat Better. Eat small portions. Shop at the grocery with a list and do not stray from it. Tips for a healthy diet include: Limit sodium intake to less than 1500mg daily, avoid prepackaged, processed, and fast foods, choose a diet rich in fruits, vegetables, and whole grain, high fiber foods, and limit saturated & cholesterol in your diet. (4) Manage Blood Pressure. If you have high blood pressure, you should have a cuff at home so that you can check your blood pressure regularly. Be sure you have a good cuff. An arm one is generally better than a wrist one. Bring the cuff to a doctor's appointment to validate that the measurements that your cuff are taking are accurate. Take your blood pressure twice daily when you are sitting down and relaxing. Record the numbers in a log and bring this log with you to your doctors' appointments. (5) Lose Weight if your BMI is above 25. A healthy BMI is between 19-25. To calculate Your BMI, you may use a Standard BMI Calculator on the NIH BMI website: <www.nhlbi.nih.gov/guidelines/obesity/BMI/bmicalc.htm>. Weigh oneself daily. If you are overweight, set a goal to lose weight. A pound a week loss if needed is a good target. (6) Reduce Blood Sugar. Limit foods and liquids with "added sugars." (Added sugars include sucrose, fructose, glucose, maltose, dextrose, high fructose corn syrup, corn syrup, concentrated fruit juice and honey). (7) Stop Smoking. If you smoke, quitting smoking is one of the best things that you can do for your health. Smoking increases your risk of heart attack, stroke, and peripheral vascular disease, which is a build-up of plaque in your arteries. Please discard all the cigarettes and lighters in your house. Have a plan for what you will do when you have the urge to smoke. Direct and second- hand smoke shortens your life as well as the lives of your family, friends and others around you. For your health and the health of those around you, please consider quitting! Proper Bending Body Mechanics: Maintain a wide stance with one foot slightly in front of the other. Keep your back straight. Bend utilizing the strength in your hips and knees. Do not bend at the waist. Maintain the lifted object at your waist-level close to your body. Avoid lifting weight that causes immediately pain or pain anywhere in the body afterwards. Smoking/Nicotine If there was ever one thing that you could do to increase your overall health, decrease your risk of cardiovascular problems by about 39% the second you make the choice, it is to STOP SMOKING. Your body's most instant gratification is the second you stop smoking. We have all heard the studies, read the articles but it is true, smoking is extremely bad for your overall health, and moreover it is detrimental to your bone health. Nicotine, IN ANY FORM, kills bone cells, prevents your body from healing fractures, and significantly prolongs healing after surgery. In spine surgery specifically, it increases your risk of not healing your bones to create a fusion and increases your risk of having a revision surgery due to this up to 60%. I know it is hard. I know it feels impossible. But there are ways. Take control of your life. We are here to help you through it. And when you are ready, ask us and we can direct you to help if you desire. Use the START Plan to Quit Smoking (please visit the Helpguide.org website listed below for more information): S = Set a quit date. Choose a date within the next 2 weeks, so you have enough time to prepare without losing your motivation to quit. If you mainly smoke at work, quit on the weekend, so you have a few days to adjust to the change. T = Tell family, friends, and co-workers that you plan to quit. Let your friends and family in on your plan to quit smoking and tell them you need their support and encouragement to stop. Look for a quit marta who wants to stop smoking as well. You can help each other get through the rough times. A = Anticipate and plan for the challenges you'll face while quitting. Most people who begin smoking again do so within the first 3 months. You can help yourself make it through by preparing ahead for common challenges, such as nicotine withdrawal and cigarette cravings. R = Remove cigarettes and other tobacco products from your home, car, and work. Throw away all your cigarettes (no emergency pack!), lighters, ashtrays, and matches. Wash your clothes and freshen up anything that smells like smoke. Shampoo your car, clean your drapes and carpet, and steam your furniture. T = Talk to your doctor about getting help to quit. Your doctor can prescribe medication to help with withdrawal and suggest other alternatives. If you can't see a doctor, you can get many products over the counter at your local pharmacy or grocery store, including the nicotine patch, nicotine lozenges, and nicotine gum. Resources for Quitting Smoking: <https://www.[place].gov/documents/[facility]/Quit_Tobacco_Resources_for_patients_313 480_7.pdf> Supplementation: Take recommended dosages of Vitamin D and Calcium to help fortify your bones and help them to heal. See your health maintenance packet for dosages and recommended levels. DVT/VTE prophylaxis: You will be given compression stockings from the hospital. Wear these daily for the first two weeks after surgery. You may take them off at night. You may be prescribed a medication to help thin your blood. Take this as directed. If you are not prescribed this medication, early and frequent ambulation has been shown to be the best prophylaxis to deep vein thrombosis and sequelae related to this event. Discharge Disposition: HOME SELF-CARE
[2020-06-12 09:59] LABS: African American GFR (CKD) 122.4 (60.0-200.0); Anion Gap 13.5 mmol/L (4.00-12.00); Carbon Dioxide 23.5 mmol/L (21.6-31.8); Non-African American GFR(CKD) 105.6 (60.0-200.0); Potassium 3.4 mmol/L (3.5-5.5)
[2020-06-12] MEDS ORDERED: POTASSIUM CHLORIDE ER 20 MEQ TAB.ER PO STA (10:10)
--- NOTE | 2020-06-12 13:09 | P.OP ---
Date of Procedure: 06/11/20 Preoperative Diagnosis: 1. C6-7 Grade I spondylolisthesis 2. C6-7 herniated nucleus pulposis with stenosis central and foraminal Postoperative Diagnosis: 1. C6-7 Grade I spondylolisthesis 2. C6-7 herniated nucleus pulposis with stenosis central and foraminal Procedure(s) Performed: 1. C6-7 ACDF 2. Use of intraoperative microscope Implants: [place] Costilla 24 mm plate 9 mm vikos allograft spacer Anesthesia: GETA Surgeon: Vinnie Calzada (KIARA Pierson was present for the entire case and was necessary due to the complexity of the case. ) Estimated Blood Loss (ml): 50 IV fluids (ml): 900 Urine output (ml): 0 Pathology: none sent Condition: stable Disposition: PACU Indications for Procedure: This 50 year old male presents with years of neck pain. He notes a significant increase of pain over the past 3 months. Patient notes left sided pain that radiates down his arm. He also notes numbness into his hand. Patient has symptoms at night time. He notes limited range of motion. Patient has increase of pain while working. He states that the pain and discomfort limits his ability to do his job. Patient currently sees a chiropractor with some relief. He takes Ibuprofen and Tylenol three times daily. he denies any bowel or bladder incontinence. He denies any perineal numbness or tingling. He denies being unsteady on his feet although he does state that he has some difficulty with fine motor skills Operative Findings: Anterior listhesis of C6-7 with large L sided posterior disc herniation causing stenosis about the L C7 root exiting. Description of Procedure: The patient was seen and examined in the preoperative area. All preoperative protocols were followed. Informed consent was obtained risks and benefits of the procedure were discussed at length. Risks including bleeding infection damage to the surrounding tissue and risk of reoperation were discussed with the patient. Risk of anesthesia up to and including was a discussed with the patient. These are outlined in the risk review. They were willing to accept these risks and all of the risks of surgery. The patient was given a weight- based dose of antibiotics in the form of 2 g Ancef IVPB 1. The patient was seen and evaluated by the anesthesia team who deemed them fit for surgery. The site was marked, the patient was willing to proceed with the procedure. The patient was transferred to the operative suite by the Department of anesthesia. They were then drifted off to sleep by the department anesthesia Gen. endotracheal intubation. The patient tolerated this well. Once confirmation of lines and ventilation the patient was transferred to a supine flat Sebastián table very carefully. All bony prominences including wrists, elbows, axilla, chest, hips, and thighs, and feet were padded very well. Special attention was paid to the genitalia and these were padded accordingly. SCDs were placed on bilateral lower extremities and were connected. Arms were well padded and placed tucked at the side and padded with thumbs up and in good position. Alfaro-OpenTable tongs were then placed 1 cm superior to the pinna in line with the external auditory meatus and 10 pounds of traction was placed on the patient's head. The patient's shoulders were then taped down to allow for good visualization a bolster was placed underneath the patient's shoulder and neck to protect his neck and allow for good extension.. Once in position, again we confirmed good ventilation capabilities and that lines were running appropriately. The patient's anterior cervical spine was then exposed. 1010s were placed outlining the incision site. Standard alcohol was used to clean the incision site and allowed to dry. C-arm was used to biomark the patient and confirm level for incision which was marked with a skin marker. Operative briefing was performed with all teams and everyone in agreement to proceed. The patient was then prepped and draped in a normal sterile fashion. Timeout was then performed and all parties were in agreement with the procedure to be performed. The previously marked area was then infiltrated with 1% lidocaine without epinephrine. Transverse skin incision was then made over the previous about marked area on the right-hand side of the patient's anterior neck. Using a blunt dissection technique and Metzenbaum a subcutaneous flap was made which helped to identify the platysma muscle. Once identified the platysmal muscle was then transversely this allowed for good visualization of the sternocleidomastoid muscle subplatysmal dissection was then taken with Metzenbaum scissors and bipolar electrocautery. Dissection was then taken down medial to the SCM and medial to the carotid sheath which was palpated. The esop hagus and trachea were then carefully mobilized and the deep cervical fascia was incised allowing visualization of the ALL. Once identified and good retropharyngeal dissection had been accomplished with good mobilization of the anterior neck structures a [place] 4 was used to identify the correct level for operation using lateral fluoroscopy. This was then marked with a Bovie. Subperiosteal dissection was then accomplished with a electrocautery bipolar electrocautery and a meza elevator to allow visualization of the uncovertebral joints at the C6-C7 level. Once these were identified and retractor was placed deep to the longissimus coli muscles to allow for good visualization. Discectomy then ensued using combination of Carrero and curettes as well as 2 teres to remove the disc entirely endplates were scraped with a curet to allow for good excepting surface of the graft. Barrington pins were then placed under lateral fluoroscopy and a lamina director of cardiology service line was used for distraction and then held in place with the Barrington pins. Microscope was then used for continued dissection and discectomy with PLL release. The posterior osteophyte was drilled down with a high-speed bur the PLL was then released using a 60 up- biting curette and removed using a 2 Kerrison. Foraminotomies were performed bilaterally with a 2 Kerrison which allowed for good release as well as decompression of the nerves in this area. There is a large disc herniation on the posterior lateral aspect of the left area abutting the exiting nerve root at this level this was removed which allowed for good decompression of this nerve root. Under lateral fluoroscopy cervical spacer size is sizers were then placed and a 9 trial was placed and had good fit. A 9 rasp was then impacted into place under lateral fluoroscopy which allowed for good endplate preparation. A 9 mm graft was then selected and impacted into place under lateral fluoroscopy and had good fit. A Costilla plate was then selected and sized under lateral fluoroscopy and once in good position was temporarily pinned into place AP and lateral fluoroscopy confirmed good position of the plate. Screws were then drilled and placed within the plate. This was done under lateral fluoroscopy. This allowed for excellent fit of the plate as well as the graft good reduction of the listhesis and good lordosis. Again AP and lateral fluoroscopy confirmed good placement of the plate as well as the grafts. The wound was copiously irrigated with normal sterile saline 3 L. FloSeal was placed in the gutters to allow for hemostasis. Barrington pins were removed and bone wax was judiciously placed into the void to prevent bleeding. A drain was then placed deep through a separate drain hole. The platysma was then repaired using 3-0 Vicryl in a simple fashion followed by subcu tissue with 3-0 Vicryl in a simple fashion followed by 4-0 Monocryl in the subcuticular skin. This was then cleaned with sterile alcohol and was then dried and covered with skin glue. The wound was then dressed sterilely with Telfa 4 x 4's and Tegaderms. The drain was sewn in with 1 nylon stitch. And dressed accordingly. The patient was transferred back to his hospital bed atraumatically. Drain continued to hold suction and were in good position. Patient was then awakened and extubated by the department of anesthesia having tolerated the procedure very well with no complications. She was transferred to the postoperative care unit in stable condition.
--- NOTE | 2020-06-12 19:35 | PN ---
PROGRESS NOTE DATE OF SERVICE: 06/12/2020 This 50-year-old gentleman who was admitted after C6-7 cervical spine surgery is improving significantly. No chest pain. No palpitations. No fever. PHYSICAL EXAMINATION: Alert and oriented x3. Pulse is 91, blood pressure 114/70, respirations 16, temperature 98.8, pulse ox 94% on room air. HEENT: Conjunctivae normal. NECK: Status post surgery. CARDIOVASCULAR SYSTEM: S1, S2 muffled. RESPIRATORY SYSTEM: Breath sounds diminished at the bases. No rhonchi. No crackles. ABDOMEN: Soft, non-tender. LEGS: No edema. No swelling. NERVOUS SYSTEM: No focal deficit. LABS: WBC 14.9, potassium 3.4. ASSESSMENT: 1. Status post C6-7 anterior cervical discectomy, fusion of severe cervical degenerative joint disease. 2. Mild hypokalemia. 3. Increased white count, possibly reactive postoperatively. 4. History of gastroesophageal reflux disease. 5. History of gastrointestinal bleed. 6. Hypertension. 7. Hyperlipidemia. 8. History of colon polyps. 9. History of hernia repair. 10.History of motion sickness. 11.FULL CODE. RECOMMENDATIONS AND DISCUSSION: I recommend to continue current medications, continue with the monitoring, symptomatic treatment. Repeat labs with the primary physician. Rest of the recommendations per Orthopedic Surgery. Further recommendations to follow. MMODL / IJN: [id number] /
== END 2020-06-12 11:55 | disposition home or self-care (01) ==
LOC: OR 10:17 → EDSTATUS 10:45 → 5NMEDONC 15:36 → OR 06-12 11:55
PROVIDERS: ATTEND Orthopaedic Surgery
DX: M50.223 Other cervical disc displacement at C6-C7 level (principal); M43.12 Spondylolisthesis, cervical region; M48.02 Spinal stenosis, cervical region; I10 Essential (primary) hypertension; K21.9 Gastro-esophageal reflux disease without esophagitis; E87.6 Hypokalemia; E78.5 Hyperlipidemia, unspecified; Z87.19 Personal history of other diseases of the digestive system; Z98.890 Other specified postprocedural states; Z88.8 Allergy status to other drugs, medicaments and biological substances; Z79.899 Other long term (current) drug therapy; Z79.1 Long term (current) use of non-steroidal anti-inflammatories (NSAID)
CPT/HCPCS: 80048; 85025; 72040; 22551; 22853; 22845; C1713; C1762 ×2; J0690 ×3; J2405; J1170; 72100; 86850; 86900; 86901

== ENCOUNTER → 2020-09-11 | Outpatient (CLI) | payer BC ==
--- NOTE | 2020-09-11 14:00 | MR ---
EXAMINATION TYPE: MR shoulder LT wo con DATE OF EXAM: 09/11/2020 1:48 PM COMPARISON: NONE HISTORY: LT shoulder pain TECHNIQUE: Multiplanar multispin echo imaging of the left shoulder was performed. FINDINGS: Rotator cuff : Mild increased signal supraspinatus tendon compatible chronic tendinopathy. There is n o complete or bursal/articular sided partial rotator cuff tear. The subscapularis constituent of the rotator cuff is intact. Bursa: No bursal effusion or thickening is seen. Musculature: There is no muscular tear, contusion, or atrophy. Acromioclavicular joint : There are mild degenerative changes of the acromioclavicular joint. There is no anterior or lateral acromial downsloping. Osseous structures : There are no fractures or regions of abnormal bone marrow signal intensity. Long biceps tendon : The biceps tendon is normally situated within the bicipital groove. No complete or partial biceps tendon tear is present. Glenohumeral Joint fluid : There is no glenohumeral joint effusion. Cartilage and Bone : No focal hyaline cartilage defects are noted. No Hill-Sachs, reverse Hill-Sachs, or bony Bankart lesions are seen. Labrum : There are no SLAP or soft tissue Bankart lesions. No paralabral cysts are seen. OTHER FINDINGS : none IMPRESSION: 1. Mild chronic tendinopathy supraspinatus tendon. No evidence for tear.
== END | disposition home or self-care (01) ==
LOC: RADMRIMAIN 12:51
PROVIDERS: ATTEND Orthopaedic Surgery
DX: M75.92 Shoulder lesion, unspecified, left shoulder (principal)

== ENCOUNTER → 2021-01-06 | Outpatient (CLI) | payer BC ==
--- NOTE | 2021-01-07 10:13 | ECHOF ---
Referral Reason:R06.02 Shortness of breath R06.09 MEASUREMENTS -------- HEIGHT: 172.7 cm WEIGHT: 90.7 kg BP: RVIDd: 2.5 cm (< 3.3) IVSd: 1.1 cm (0.6 - 1.1) LVIDd: 4.8 cm (3.9 - 5.3) LVPWd: 1.3 cm (0.6 - 1.1) IVSs: 1.3 cm LVIDs: 3.3 cm LVPWs: 1.3 cm LAESV Index (A-L): 33.42 ml/m Ao Diam: 2.9 cm (2.0 - 3.7) AV Cusp: 2.1 cm (1.5 - 2.6) LA Diam: 3.9 cm (2.7 - 3.8) MV EXCURSION: 11.800 mm (> 18.000) MV EF SLOPE: 77 mm/s (70 - 150) EPSS: 0.3 cm MV E Yung: 0.75 m/s MV DecT: 199 ms MV A Yung: 0.63 m/s MV E/A Ratio: 1.20 RAP: 5.00 mmHg RVSP: 34.27 mmHg FINDINGS -------- Sinus rhythm. This was a technically good study. The left ventricular size is normal. There is mild concentric left ventricular hypertrophy. Overa ll left ventricular systolic function is low-normal with, an EF between 50 - 55 %. The right ventricle is normal in size. LA is midly dilated 29-33ml/m2. The right atrial size is normal. The aortic valve is trileaflet, and appears structurally normal. No aortic stenosis or regurgitation. Mild mitral regurgitation is present. Mild tricuspid regurgitation present. The right ventricular systolic pressure, as measured by Doppl er, is 34.27mmHg. There is no pulmonic regurgitation present. There is no pericardial effusion. CONCLUSIONS -------- 1. The left ventricular size is normal. 2. There is mild concentric left ventricular hypertrophy. 3. Overall left ventricular systolic function is low-normal with, an EF between 50 - 55 %. 4. The right ventricle is normal in size. 5. LA is midly dilated 29-33ml/m2. 6. The right atrial size is normal. 7. The aortic valve is trileaflet, and appears structurally normal. No aortic stenosis or regurgitati on. 8. Mild mitral regurgitation is present. 9. Mild tricuspid regurgitation present. 10. The right ventricular systolic pressure, as measured by Doppler, is 34.27mmHg. 11. There is no pericardial effusion. DATASTAGE DEVELOPER: Lucie Clark RDCS
== END | disposition home or self-care (01) ==
LOC: RADECHMAIN 13:48
PROVIDERS: ATTEND Family Medicine
DX: I08.1 Rheumatic disorders of both mitral and tricuspid valves (principal)
CPT/HCPCS: 93306

== ENCOUNTER → 2022-12-24 | Outpatient (CLI) | payer BC ==
--- NOTE | 2022-12-25 08:46 | CT ---
EXAMINATION TYPE: CT chest wo con DATE OF EXAM: 12/24/2022 COMPARISON: None HISTORY: chronc cough, sob and wheezing [id number]. CT DLP: 530.50 mGycm. Automated Exposure Control for Dose Reduction was Utilized. TECHNIQUE: CT scan of the thorax is performed without IV contrast. FINDINGS: LUNGS: The lungs are grossly clear, there is no concerning parenchymal mass or nodule identified. T here is no pleural effusion or pneumothorax seen. The tracheobronchial tree is patent. Benign 2 mm calcified granuloma right middle lobe. There is a 2 mm nodule left upper lobe axial image 37 series #4. There is a 1 mm nodule right upper lobe axial image 28 series 4. Additional linear areas of subsegmental consolidation most compatible scarring or atelectasis MEDIASTINUM: Lack of IV contrast is noted to limit evaluation for mediastinal and especially hilar ad enopathy. There are no definitive greater than 1 cm hilar or mediastinal lymph nodes. Subcentimeter l ymph nodes are seen in the mediastinum. Aorta of normal caliber. Heart is mildly enlarged. No signifi cant coronary artery calcium cage. OTHER: Small hiatal hernia with scoliosis and multilevel degenerative disc disease. Nonobstructing 2 mm left renal calculus. IMPRESSION: 1. No acute intrathoracic process. Sub-5 mm pulmonary nodules have a benign appearance. 12 month jet al screening low dose CT scan could be obtained. 2. Nonobstructing 2 mm left renal calculus. 3. Small hiatal hernia.
== END | disposition home or self-care (01) ==
LOC: RADCTMAIN 17:46
PROVIDERS: ATTEND Family Medicine
DX: K44.9 Diaphragmatic hernia without obstruction or gangrene (principal); N20.0 Calculus of kidney; R91.8 Other nonspecific abnormal finding of lung field; R05.3 Chronic cough; R06.02 Shortness of breath; R06.2 Wheezing
CPT/HCPCS: 71250

== ENCOUNTER → 2023-06-15 | Outpatient (CLI) | payer BC ==
--- NOTE | 2023-06-17 16:54 | XR ---
EXAMINATION TYPE: XR chest 2V DATE OF EXAM: 06/15/2023 9:54 AM CLINICAL INDICATION:Male, 53 years old with history of R053 CHRONIC COUGH; [facility] COMPARISON: 2V chest 07/24/[address] chest 12/24/2022 TECHNIQUE: XR chest 2V. Frontal PA and lateral views of the chest. FINDINGS: Lines/Tubes: None. Heart/mediastinum: Heart size is stable, mildly enlarged. Stable mediastinal silhouette. Mildly tor tuous aorta. Pulmonary vascularity: Not increased, Lungs/Pleura: There is no evidence of pleural effusion, focal consolidation, or pneumothorax. Musculoskeletal: No acute osseous abnormality demonstrated in the limits of the exam. Mild degenerat suzy changes of the spine with mild S-shaped scoliosis. ACDF hardware in the lower cervical spine. Other findings: None. IMPRESSION: No acute findings, or significant interval change.
== END | disposition home or self-care (01) ==
LOC: RADXRYALE 09:39
PROVIDERS: ATTEND Family Medicine
DX: R05.3 Chronic cough (principal)
CPT/HCPCS: 71046

== ENCOUNTER 2024-06-09 11:10 | Emergency (ER) | payer BC ==
[2024-06-09 11:22] VITALS: TEMP 98.3
[2024-06-09 12:03] LABS: Basophils % (A) 0 %; Eosinophils % (A) 0 %; HGB 15.4 gm/dL (13.0-17.5); Lymphocytes # (A) 1.1 k/uL (1.0-4.8); Lymphocytes % (A) 12 %; MCHC 33.4 g/dL (31.0-37.0); MCV 89.7 fL (80.0-100.0); Mean Platelet Volume 7.2; Monocytes # (A) 0.5 k/uL (0-1.0); Monocytes % (A) 5 %; Neutrophils # (A) 7.8 k/uL (1.3-7.7); Neutrophils % (A) 82 %; Platelet Count 285 k/uL (150-450); RBC 5.12 m/uL (4.30-5.90); RDW 12.8 % (11.5-15.5); WBC 9.5 k/uL (3.8-10.6)
--- NOTE | 2024-06-09 12:09 | ED ---
SOB HPI - General Chief Complaint: Shortness of Breath Stated Complaint: NARCISA Time Seen by Provider: 06/09/24 12:04 Source: patient, RN notes reviewed Mode of arrival: ambulatory Limitations: no limitations - History of Present Illness Initial Comments: 54-year-old male with history of asthma presenting for cough x 1 week with associated nasal congestion. He was seen in urgent care 3 days ago where they gave him a steroid injection and started him on a Z-Tanner. Patient states initially symptoms improved however worsened which prompted him to return to urgent care today. States he received another steroid injection. On his way to x-ray, patient became dizzy and he was told that his oxygen dropped into the 80s. They sent him to ER for further evaluation. Denies fever, chest pain, shortness of breath. Denies history of cardiac issues. Family is present on examination who reports patient is exposed to dust and environmental toxins for his occupation which has contributed to pulmonary issues. - Related Data Home Medications Medication Instructions Recorded Confirmed Famotidine [Pepcid] 20 mg PO DAILY 01/24/19 06/09/24 Atorvastatin [Lipitor] 40 mg PO HS 06/06/20 06/09/24 Losartan Potassium [Cozaar] 100 mg PO DAILY 06/06/20 06/09/24 Azithromycin [Zithromax Z Pack] See Taper PO DAILY 06/09/24 06/09/24 Promethazine/Dextromethorphan 5 ml PO Q6H PRN 06/09/24 06/09/24 [Promethazine-Dm Syrup] Vitamin D(Unknown Dose) 1 tab PO DAILY 06/09/24 06/09/24 atenoloL 100 mg PO DAILY 06/09/24 06/09/24 dilTIAZem HCL [dilTIAZem HCL 24Hr 120 mg PO DAILY 06/09/24 06/09/24 ER ([place])] hydrALAZINE HCL [Apresoline] 100 mg PO BID 06/09/24 06/09/24 Previous Rx's Medication Instructions Recorded predniSONE [Deltasone] 40 mg PO DAILY 5 Days #10 tab 06/09/24 Allergies Allergy/AdvReac Type Severity Reaction Status Date / Time verapamil Allergy Anaphylaxis Verified 06/09/24 13:11 Review of Systems ROS Statement: Those systems with pertinent positive or pertinent negative responses have been documented in the HPI. ROS Other: All systems not noted in ROS Statement are negative. Past Medical History Past Medical History: GERD/Reflux, GI Bleed, Hyperlipidemia, Hypertension Additional Past Medical History / Comment(s): stomach pains History of Any Multi-Drug Resistant Organisms: None Reported Past Surgical History: Hernia Repair Additional Past Surgical History / Comment(s): COLONOSCOPY, Past Anesthesia/Blood Transfusion Reactions: Motion Sickness Past Psychological History: No Psychological Hx Reported Smoking Status: Never smoker Past Alcohol Use History: Occasional Past Drug Use History: None Reported - Past Family History Mother Family Medical History: No Reported History General Exam Limitations: no limitations General appearance: alert, in no apparent distress Head exam: Present: atraumatic, normocephalic, normal inspection Eye exam: Present: normal appearance, PERRL, EOMI. Absent: scleral icterus, conjunctival injection, periorbital swelling ENT exam: Present: normal exam, mucous membranes moist Respiratory exam: Present: normal lung sounds bilaterally, wheezes. Absent: respiratory distress, rales, rhonchi, stridor Cardiovascular Exam: Present: regular rate, normal rhythm, normal heart sounds. Absent: systolic murmur, diastolic murmur, rubs, gallop, clicks Neurological exam: Present: alert, oriented X3 Psychiatric exam: Present: normal affect, normal mood Skin exam: Present: warm, dry, intact, normal color. Absent: rash Course Vital Signs 06/09/24 06/09/24 06/09/24 11:18 11:45 11:55 Temperature 98.3 F Pulse Rate 75 Respiratory 20 22 Rate Blood Pressure 102/73 O2 Sat by Pulse 95 91 L Oximetry 06/09/24 06/09/24 12:00 13:01 Temperature Pulse Rate 65 Respiratory 20 Rate Blood Pressure 113/81 O2 Sat by Pulse 95 96 Oximetry Medical Decision Making - Medical Decision Making Was pt. sent in by a medical professional or institution (, PA, CHARGE LOADER, urgent care, hospital, or skilled nursing...) When possible be specific @ -Sent by urgent care for low oxygen Did you speak to anyone other than the patient for history (EMS, parent, family, police, friend...)? What history was obtained from this source @ -No Did you review nursing and triage notes (agree or disagree)? Why? @ -I reviewed and agree with nursing and triage notes Were old charts reviewed (outside hosp., previous admission, EMS record, old EKG, old radiological studies, urgent care reports/EKG's, skilled nursing records)? Report findings @ -No old charts were reviewed Differential Diagnosis (chest pain, altered mental status, abdominal pain women, abdominal pain men, vaginal bleeding, weakness, fever, dyspnea, syncope, headache, dizziness, GI bleed, back pain, seizure, CVA, palpatations, mental health, musculoskeletal)? @ -Differential Dyspnea: Coronary syndrome, arrhythmia, tamponade, asthma, COPD, pulmonary embolism, pneumonia, pneumothorax, pulmonary effusion, anaphylaxis, diabetic ketoacidosis, flailed chest, pulmonary contusion, diaphragmatic rupture, anemia, neuromuscular, this is not meant to be an all-inclusive list. EKG interpreted by me (3pts min.). @ -As above X-rays interpreted by me (1pt min.). @ -Chest x-ray reveals no acute process CT interpreted by me (1pt min.). @ -None done U/S interpreted by me (1pt. min.). @ -None done What testing was considered but not performed or refused? (CT, X-rays, U/S, labs)? Why? @ -None What meds were considered but not given or refused? Why? @ -Patient was given steroid injection prior to arrival at urgent care Did you discuss the management of the patient with other professionals (professionals i.e. , PA, CHARGE LOADER, lab, RT, psych nurse, social work program coordinator, establishment guide, teacher, licensing officer, pillowcase cutter)? Give summary @ -No Was smoking cessation discussed for >3mins.? @ -No Was critical care preformed (if so, how long)? @ -No Were there social determinants of health that impacted care today? How? (Homelessness, low income, unemployed, alcoholism, drug addiction, transportation, low edu. Level, literacy, decrease access to med. care, fpc, rehab)? @ -No Was there de-escalation of care discussed even if they declined (Discuss DNR or withdrawal of care, Hospice)? DNR status @ -No What co-morbidities impacted this encounter? (DM, HTN, Smoking, COPD, CAD, Cancer, CVA, ARF, Chemo, Hep., AIDS, mental health diagnosis, sleep apnea, morbid obesity)? @ -None Was patient admitted / discharged? Hospital course, mention meds given and route, prescriptions, significant lab abnormalities, going to OR and other pertinent info. @ -Discharge. This is a 54-year-old male with history of asthma presenting for cough x 1 week. Vital signs are stable. Patient is afebrile, satting 95% on room air. Next reading was 91% on room air, therefore patient was placed on 2 L of oxygen. Expiratory wheezing auscultated in all lung elam bilaterally. No signs of respiratory distress. Patient is flu a positive. Lab work remarkable for hypokalemia at 3.1, otherwise unremarkable. Chest x-ray reveals no acute process. Results discussed with patient. Patient's oxygen remained stable throughout ER visit. Patient denies shortness of breath. He was given one-time dose of oral potassium. Prescribed steroids to pharmacy to start tomorrow. Appropriate return precautions and follow-up care discussed with patient and he is agreeable to plan. Case was discussed with my ED attending Dr. Whitfield. Undiagnosed new problem with uncertain prognosis? @ -No Drug Therapy requiring intensive monitoring for toxicity (Heparin, Nitro, Insulin, Cardizem)? @ -No Were any procedures done? @ -No Diagnosis/symptom? @ -Influenza A, hypokalemia Acute, or Chronic, or Acute on Chronic? @ -Acute Uncomplicated (without systemic symptoms) or Complicated (systemic symptoms)? @ -Uncomplicated Side effects of treatment? @ -No Exacerbation, Progression, or Severe Exacerbation? @ -No Poses a threat to life or bodily function? How? (Chest pain, [place], [place], pneumonia, PE, COPD, DKA, ARF, appy, cholecystitis, CVA, Diverticulitis, Homicidal, Suicidal, threat to staff... and all critical care pts) @ -Not at this time - Lab Data Result diagrams: 06/09/24 11:47 06/09/24 11:47 Lab Results 06/09/24 06/09/24 06/09/24 Range/Units 11:47 11:47 11:47 WBC 9.5 (3.8-10.6) k/uL RBC 5.12 (4.30-5.90) m/uL Hgb 15.4 (13.0-17.5) gm/dL Hct 46.0 (39.0-53.0) % MCV 89.7 (80.0-100.0) fL MCH 30.0 (25.0-35.0) pg MCHC 33.4 (31.0-37.0) g/dL RDW 12.8 (11.5-15.5) % Plt Count 285 (150-450) k/uL MPV 7.2 Neutrophils % 82 % Lymphocytes % 12 % Monocytes % 5 % Eosinophils % 0 % Basophils % 0 % Neutrophils # 7.8 H (1.3-7.7) k/uL Lymphocytes # 1.1 (1.0-4.8) k/uL Monocytes # 0.5 (0-1.0) k/uL Eosinophils # 0.0 (0-0.7) k/uL Basophils # 0.0 (0-0.2) k/uL PT 10.5 (10.0-12.5) sec INR 0.9 (<1.2) APTT 22.3 (22.0-30.0) sec Sodium 138 (137-145) mmol/L Potassium 3.1 L (3.5-5.1) mmol/L Chloride 102 (98-107) mmol/L Carbon Dioxide 28 (22-30) mmol/L Anion Gap 8 mmol/L BUN 15 (9-20) mg/dL Creatinine 1.37 H (0.66-1.25) mg/dL Est GFR (CKD-EPI)AfAm 68 (>60 ml/min/1.73 sqM) Est GFR (CKD-EPI)NonAf 59 (>60 ml/min/1.73 sqM) Glucose 111 H (74-99) mg/dL Calcium 8.7 (8.4-10.2) mg/dL Total Bilirubin 0.8 (0.2-1.3) mg/dL AST 31 (17-59) U/L ALT 38 (4-49) U/L Alkaline Phosphatase 59 (38-126) U/L Troponin I (0.000-0.034) ng/mL Total Protein 6.8 (6.3-8.2) g/dL Albumin 4.3 (3.5-5.0) g/dL Influenza Type A (PCR) (Not Detectd) Influenza Type B (PCR) (Not Detectd) RSV (PCR) (Not Detectd) SARS-CoV-2 (PCR) (Not Detectd) 06/09/24 06/09/24 Range/Units 11:47 11:47 WBC (3.8-10.6) k/uL RBC (4.30-5.90) m/uL Hgb (13.0-17.5) gm/dL Hct (39.0-53.0) % MCV (80.0-100.0) fL MCH (25.0-35.0) pg MCHC (31.0-37.0) g/dL RDW (11.5-15.5) % Plt Count (150-450) k/uL MPV Neutrophils % % Lymphocytes % % Monocytes % % Eosinophils % % Basophils % % Neutrophils # (1.3-7.7) k/uL Lymphocytes # (1.0-4.8) k/uL Monocytes # (0-1.0) k/uL Eosinophils # (0-0.7) k/uL Basophils # (0-0.2) k/uL PT (10.0-12.5) sec INR (<1.2) APTT (22.0-30.0) sec Sodium (137-145) mmol/L Potassium (3.5-5.1) mmol/L Chloride (98-107) mmol/L Carbon Dioxide (22-30) mmol/L Anion Gap mmol/L BUN (9-20) mg/dL Creatinine (0.66-1.25) mg/dL Est GFR (CKD-EPI)AfAm (>60 ml/min/1.73 sqM) Est GFR (CKD-EPI)NonAf (>60 ml/min/1.73 sqM) Glucose (74-99) mg/dL Calcium (8.4-10.2) mg/dL Total Bilirubin (0.2-1.3) mg/dL AST (17-59) U/L ALT (4-49) U/L Alkaline Phosphatase (38-126) U/L Troponin I <0.012 (0.000-0.034) ng/mL Total Protein (6.3-8.2) g/dL Albumin (3.5-5.0) g/dL Influenza Type A (PCR) Detected A (Not Detectd) Influenza Type B (PCR) Not Detected (Not Detectd) RSV (PCR) Not Detected (Not Detectd) SARS-CoV-2 (PCR) Not Detected (Not Detectd) - EKG Data -: EKG Interpreted by Me EKG Comments: EKG reveals normal sinus rhythm with use T wave inversions. Ventricular rate 66 bpm, MN interval 162, QRS duration 110, QT/QTc 422/435 Disposition Clinical Impression: Influenza A Disposition: HOME SELF-CARE Condition: Stable Instructions (If sedation given, give patient instructions): Influenza (ED) Additional Instructions: Start steroids tomorrow. Please return to the Emergency Department if symptoms worsen or any other concerns. Prescriptions: predniSONE [Deltasone] 40 mg PO DAILY 5 Days #10 tab Is patient prescribed a controlled substance at d/c from ED?: No Referrals: Roque Lindo DO [Primary Care Provider] - 1-2 days Time of Disposition: 13:41
[2024-06-09 12:15] LABS: ALT 38 U/L (4-49); AST 31 U/L (17-59); African American GFR (CKD) 68 (>60 ml/min/1.73 sqM); Albumin 4.3 g/dL (3.5-5.0); Alkaline Phosphatase 59 U/L (38-126); Anion Gap 8 mmol/L; Blood Urea Nitrogen 15 mg/dL (9-20); Calcium 8.7 mg/dL (8.4-10.2); Carbon Dioxide 28 mmol/L (22-30); Chloride 102 mmol/L (98-107); Glucose 111 mg/dL (74-99); Non-African American GFR(CKD) 59 (>60 ml/min/1.73 sqM); Potassium 3.1 mmol/L (3.5-5.1); Sodium 138 mmol/L (137-145); Total Bilirubin 0.8 mg/dL (0.2-1.3); Total Protein 6.8 g/dL (6.3-8.2)
[2024-06-09 12:17] LABS: INR 0.9 (<1.2); Partial Thromboplastin Time 22.3 sec (22.0-30.0); Prothrombin Time 10.5 sec (10.0-12.5)
--- NOTE | 2024-06-09 13:02 | XR ---
EXAMINATION TYPE: XR chest 2V DATE OF EXAM: 06/09/2024 12:55 PM COMPARISON: Chest radiographs from 06/15/2023, CT chest 12/24/2022 TECHNIQUE: XR chest 2V Frontal and lateral views of the chest. CLINICAL INDICATION:Male, 54 years old with history of cough; FINDINGS: Lungs/Pleura: There is no evidence of pleural effusion, focal consolidation, or pneumothorax. Pulmonary vascularity: Unremarkable. Heart/mediastinum: Cardiomediastinal silhouette is unremarkable. Musculoskeletal: No acute osseous pathology. Anterior cervical fusion hardware demonstrated. IMPRESSION: No acute cardiopulmonary disease/process. [facility], , 06/09/2024 1:00 PM
[2024-06-09 13:03] VITALS: RESP 20
[2024-06-09] MEDS: POTASSIUM CHLORIDE ER 20 MEQ TAB.ER PO STA (14:10)
[2024-06-09 14:17] VITALS: BP 114/84; PULSE 66
== END 2024-06-09 14:17 | disposition home or self-care (01) ==
LOC: EC 11:10
DX: J10.1 Influenza due to other identified influenza virus with other respiratory manifestations (principal); E87.6 Hypokalemia; Z88.8 Allergy status to other drugs, medicaments and biological substances
CPT/HCPCS: 36415; 71046; 80053; 84484; 85025; 85610; 85730; 87636; 93005; 99285

== ENCOUNTER 2024-09-01 01:57 | Emergency (ER) | payer BC ==
[2024-09-01 02:05] VITALS: RESP 18
--- NOTE | 2024-09-01 02:47 | ED ---
Allergic Reaction HPI - General Chief complaint: Allergic Reaction Stated complaint: allergic reaction Time Seen by Provider: 09/01/24 02:21 Source: patient Mode of arrival: ambulatory Limitations: no limitations - History of Present Illness Initial Comments: This patient is a 54-year-old man who presents to have evaluation for what he believes is worsening of allergic reaction. The patient notes that he is now into his second day of allergic reaction. It had come on after he was exposed to something at work. He had developed itching and urticaria. Patient had been taking antihistamines. Patient states that when he was in bed tonight it felt like his throat was swelling. The patient has not noted fever or chills. No dyspnea. No change in voice or swallowing. No vomiting or diarrhea. MD Complaint: allergic reaction, hives Onset/Timin -: days(s) Exposure: unknown Symptoms: itching, orolingual swelling Severity: moderate Treatment Prior to Arrival: benadryl - Related Data Home Medications Medication Instructions Recorded Confirmed Famotidine [Pepcid] 20 mg PO DAILY 01/24/19 06/09/24 Atorvastatin [Lipitor] 40 mg PO HS 06/06/20 06/09/24 Losartan Potassium [Cozaar] 100 mg PO DAILY 06/06/20 06/09/24 Azithromycin [Zithromax Z Pack] See Taper PO DAILY 06/09/24 06/09/24 Promethazine/Dextromethorphan 5 ml PO Q6H PRN 06/09/24 06/09/24 [Promethazine-Dm Syrup] Vitamin D(Unknown Dose) 1 tab PO DAILY 06/09/24 06/09/24 atenoloL 100 mg PO DAILY 06/09/24 06/09/24 dilTIAZem HCL [dilTIAZem HCL 24Hr 120 mg PO DAILY 06/09/24 06/09/24 ER ([place])] hydrALAZINE HCL [Apresoline] 100 mg PO BID 06/09/24 06/09/24 Previous Rx's Medication Instructions Recorded predniSONE [Deltasone] 40 mg PO DAILY 5 Days #10 tab 06/09/24 Famotidine [Pepcid] 20 mg PO BID #14 tablet 09/01/24 diphenhydrAMINE [Benadryl] 50 mg PO QID PRN #24 capsule 09/01/24 predniSONE 60 mg PO DAILY #30 tab 09/01/24 Allergies Allergy/AdvReac Type Severity Reaction Status Date / Time verapamil Allergy Anaphylaxis Verified 09/01/24 02:05 Review of Systems ROS Statement: Those systems with pertinent positive or pertinent negative responses have been documented in the HPI. ROS Other: All systems not noted in ROS Statement are negative. Constitutional: Denies: fever, chills, weakness ENT: Reports: as per HPI, throat pain. Denies: congestion Respiratory: Denies: cough, dyspnea Cardiovascular: Denies: chest pain, palpitations, edema Gastrointestinal: Denies: abdominal pain, vomiting, diarrhea Genitourinary: Denies: dysuria, hematuria Skin: Reports: as per HPI, rash Neurological: Denies: headache, weakness Past Medical History Past Medical History: GERD/Reflux, GI Bleed, Hyperlipidemia, Hypertension Additional Past Medical History / Comment(s): stomach pains History of Any Multi-Drug Resistant Organisms: None Reported Past Surgical History: Hernia Repair Additional Past Surgical History / Comment(s): COLONOSCOPY, Past Anesthesia/Blood Transfusion Reactions: Motion Sickness Past Psychological History: No Psychological Hx Reported Smoking Status: Never smoker Past Alcohol Use History: Occasional Past Drug Use History: None Reported - Past Family History Mother Family Medical History: No Reported History General Exam Limitations: no limitations General appearance: alert, in no apparent distress Head exam: Present: atraumatic, normocephalic Eye exam: Present: normal appearance. Absent: scleral icterus, conjunctival injection ENT exam: Present: other Neck exam: Present: normal inspection, full ROM. Absent: meningismus, lymphadenopathy Respiratory exam: Present: normal lung sounds bilaterally. Absent: respiratory distress, wheezes, rales, rhonchi, stridor, accessory muscle use Cardiovascular Exam: Present: regular rate, normal rhythm, normal heart sounds. Absent: systolic murmur, diastolic murmur, rubs, gallop GI/Abdominal exam: Present: soft. Absent: distended, tenderness, guarding, rebound, rigid, mass Extremities exam: Present: normal inspection, normal capillary refill. Absent: pedal edema, calf tenderness Back exam: Present: normal inspection. Absent: CVA tenderness (R), CVA tenderness (L) Neurological exam: Present: alert Skin exam: Present: warm, dry, intact, normal color. Absent: rash Course Vital Signs 09/01/24 09/01/24 09/01/24 02:01 02:44 04:25 Temperature 97.7 F 98.7 F 98.3 F Pulse Rate 73 72 66 Respiratory 18 18 18 Rate Blood Pressure 173/113 144/99 155/103 O2 Sat by Pulse 97 95 97 Oximetry Medical Decision Making - Medical Decision Making Patient initially in room with no wall Otoscope. Patient medicated and on reevaluation states he is feeling better. We discussed appropriate further care and follow-up as well as return parameters. Was pt. sent in by a medical professional or institution (, THA, TOOLS PROGRAMMER, urgent care, hospital, or longterm...) When possible be specific @ -[No] Did you speak to anyone other than the patient for history (EMS, parent, family, police, friend...)? What history was obtained from this source @ -[No] Did you review nursing and triage notes (agree or disagree)? Why? @ -[I reviewed and agree with nursing and triage notes] Were old charts reviewed (outside hosp., previous admission, EMS record, old EKG, old radiological studies, urgent care reports/EKG's, longterm records)? Report findings @ -[No old charts were reviewed] Differential Diagnosis (chest pain, altered mental status, abdominal pain women, abdominal pain men, vaginal bleeding, weakness, fever, dyspnea, syncope, headache, dizziness, GI bleed, back pain, seizure, CVA, palpatations, mental health, musculoskeletal)? @ -[Differential diagnosis includes allergic reaction, pharyngitis, abscess, mass EKG interpreted by me (3pts min.). @ -[As above] X-rays interpreted by me (1pt min.). @ -[None done] CT interpreted by me (1pt min.). @ -[None done] U/S interpreted by me (1pt. min.). @ -[None done] What testing was considered but not performed or refused? (CT, X-rays, U/S, labs)? Why? @ -[Imaging of soft tissue of the neck was initially considered but the patient had marked improvement in symptoms with treatment and consistent with the earlier allergic reaction. What meds were considered but not given or refused? Why? @ -[None] Did you discuss the management of the patient with other professionals (professionals i.e. , PA, TOOLS PROGRAMMER, lab, RT, psych nurse, social media content manager, pan pusher, teacher, us customs and border officer, caser shoe parts)? Give summary @ -[No] Was smoking cessation discussed for >3mins.? @ -[No] Was critical care preformed (if so, how long)? @ -[No] Were there social determinants of health that impacted care today? How? (Ho melessness, low income, unemployed, alcoholism, drug addiction, transportation, low edu. Level, literacy, decrease access to med. care, correction, rehab)? @ -[No] Was there de-escalation of care discussed even if they declined (Discuss DNR or withdrawal of care, Hospice)? DNR status @ -[No] What co-morbidities impacted this encounter? (DM, HTN, Smoking, COPD, CAD, Cancer, CVA, ARF, Chemo, Hep., AIDS, mental health diagnosis, sleep apnea, morbid obesity)? @ -[None] Was patient admitted / discharged? Hospital course, mention meds given and route, prescriptions, significant lab abnormalities, going to OR and other pertinent info. @ -[Patient is 54-year-old man presenting with hoarseness and sensation of pharyngeal swelling. He is given medication and feeling improvement. Discussed appropriate further care and follow-up as well as return parameters. Undiagnosed new problem with uncertain prognosis? @ -[No] Drug Therapy requiring intensive monitoring for toxicity (Heparin, Nitro, Insulin, Cardizem)? @ -[No] Were any procedures done? @ -[No] Diagnosis/symptom? @ -[Acute allergic reaction Acute, or Chronic, or Acute on Chronic? @ -[Acute Uncomplicated (without systemic symptoms) or Complicated (systemic symptoms)? @ -[Uncomplicated Side effects of treatment? @ -[No] Exacerbation, Progression, or Severe Exacerbation? @ -[No] Poses a threat to life or bodily function? How? (Chest pain, [place], [place], pneumonia, PE, COPD, DKA, ARF, appy, cholecystitis, CVA, Diverticulitis, Homicidal, Suicidal, threat to staff... and all critical care pts) @ -[No] All treatments are based on ideal body weight as in ED triage Disposition Clinical Impression: Allergic reaction Disposition: HOME SELF-CARE Condition: Good Instructions (If sedation given, give patient instructions): General Allergic Reaction (ED) Prescriptions: diphenhydrAMINE [Benadryl] 50 mg PO QID PRN #24 capsule PRN Reason: Itching Famotidine [Pepcid] 20 mg PO BID #14 tablet predniSONE 60 mg PO DAILY #30 tab Is patient prescribed a controlled substance at d/c from ED?: No Referrals: Roque Lindo DO [Primary Care Provider] - 1-2 days Amie Henry MD [STAFF PHYSICIAN] - 1-2 days
[2024-09-01] MEDS: FAMOTIDINE 20 MG TAB PO STA (02:53)
[2024-09-01] MEDS: diphenhydrAMINE 50 MG CAP PO STA (02:53)
[2024-09-01] MEDS: predniSONE 20 MG TAB PO STA (02:54)
[2024-09-01 04:32] VITALS: BP 155/103; PULSE 66; TEMP 98.3
== END 2024-09-01 04:32 | disposition home or self-care (01) ==
LOC: EC 01:57
DX: T78.40XA Allergy, unspecified, initial encounter (principal); Z88.8 Allergy status to other drugs, medicaments and biological substances
CPT/HCPCS: 99283; J7512